=== PATIENT | male | born 1980 | race African-American/Black ===

== ENCOUNTER 2017-09-20 22:37 | Emergency (ER) | payer OTHER ==
[~2017-09-20] VITALS: Ht 154.9 cm; Wt 94.0 kg
[~2017-09-20 22:37] MED LIST: AUGMENTIN875 MG PO; FLEXERIL5 MG PO; LORTAB 5-325 M1 EACH PO; MOTRIN600 MG PO; NAPROXEN500 MG PO; PERCOCET 5/31 TABLET PO; SKELAXIN800 MG PO; TYLENOL WITH C1 EACH PO
[2017-09-20 22:40] VITALS: BP 154/96
[2017-09-20] MEDS ORDERED: PERCOCET 5/31 TABLET PO (23:39)
[2017-09-20] MEDS ORDERED: VOLTAREN75 MG PO (23:39)
== END 2017-09-20 23:56 | disposition home or self-care (01) ==
LOC: EME 22:37
DX: M25.521 Pain in right elbow (principal); M25.522 Pain in left elbow; F17.200 Nicotine dependence, unspecified, uncomplicated
CPT/HCPCS: 99281; 99283

== ENCOUNTER 2017-10-01 00:43 | Emergency (ER) | payer OTHER ==
[~2017-10-01] VITALS: Ht 185.4 cm; Wt 92.3 kg
[~2017-10-01 00:43] MED LIST changes: +VOLTAREN75 MG PO
[2017-10-01 00:45] VITALS: BP 151/106
[2017-10-01] MEDS ORDERED: PERCOCET 5/31 TABLET PO (01:35)
[2017-10-01] MEDS ORDERED: VOLTAREN50 MG PO (01:35)
== END 2017-10-01 02:26 | disposition home or self-care (01) ==
LOC: EME 00:43
DX: M77.8 Other enthesopathies, not elsewhere classified (principal); I10 Essential (primary) hypertension; F17.200 Nicotine dependence, unspecified, uncomplicated; Z88.1 Allergy status to other antibiotic agents